=== PATIENT | male | born 1960 | race Caucasian/White ===

== ENCOUNTER → 2019-05-28 | Outpatient (CLI) | payer OTHER ==
[2019-05-30 14:06] LABS: Stool Occult Bld Immuno 1 Negative (NEGATIVE)
== END | disposition home or self-care (01) ==
LOC: LAB SHORT 12:17 → LAB 12:17 → LAB SHORT 05-29 12:17
PROVIDERS: Nurse Practitioner Family
DX: Z12.11 Encounter for screening for malignant neoplasm of colon (principal)
CPT/HCPCS: G0328

== ENCOUNTER → 2020-12-27 | Outpatient (CLI) | payer OTHER ==
[2020-12-27 15:51] LABS: Prostate Specific Antigen 0.272 ng/mL (0.000-4.000)
== END ==
LOC: LAB SHORT 12:13 → LAB 12:13 → LAB FUT 06-28 09:40
PROVIDERS: Urology
DX: C61 Malignant neoplasm of prostate (principal)
CPT/HCPCS: 36415; 84153

== ENCOUNTER 2021-06-05 13:44 | Day surgery (SDC) | payer MEDICARE, OTHER ==
[~2021-06-05] VITALS: Ht 190.5 cm; Wt 78.5 kg
[~2021-06-05 13:44] MED LIST: ALBU90OI; Aspir 8181 MG; BASAGLAR K100 UNIT/1; COMBIVENT RESPIM4 G1; Flonase 0.05% N16 GM; METF500; ZYRTEC10 M1
== END 2021-06-05 15:50 | disposition home or self-care (01) ==
LOC: ORSCSDS 13:44
PROVIDERS: Student in an Organized Health Care Education/Training Program
PROC: 0DBH8ZX Excision of Cecum, Via Natural or Artificial Opening Endoscopic, Diagnostic (ICD-10-PCS; principal; 2021-06-05 15:00)
PROC: 0DBM8ZX Excision of Descending Colon, Via Natural or Artificial Opening Endoscopic, Diagnostic (ICD-10-PCS; principal; 2021-06-05 15:00)
PROC: 0DBK8ZX Excision of Ascending Colon, Via Natural or Artificial Opening Endoscopic, Diagnostic (ICD-10-PCS; principal; 2021-06-05 15:00)
PROC: 0DBL8ZX Excision of Transverse Colon, Via Natural or Artificial Opening Endoscopic, Diagnostic (ICD-10-PCS; principal; 2021-06-05 15:00)
DX: R19.7 Diarrhea, unspecified (principal); Z80.0 Family history of malignant neoplasm of digestive organs; D12.2 Benign neoplasm of ascending colon; D12.3 Benign neoplasm of transverse colon; D12.4 Benign neoplasm of descending colon; D12.5 Benign neoplasm of sigmoid colon; K64.8 Other hemorrhoids; K64.4 Residual hemorrhoidal skin tags; J45.909 Unspecified asthma, uncomplicated; E78.5 Hyperlipidemia, unspecified; I10 Essential (primary) hypertension; E11.9 Type 2 diabetes mellitus without complications; Z79.4 Long term (current) use of insulin; Z79.899 Other long term (current) drug therapy; Z79.82 Long term (current) use of aspirin
CPT/HCPCS: 82947; 88305; J0461; J2405; J2704; J7120

== ENCOUNTER 2021-08-30 07:45 | Day surgery (SDC) | payer MEDICARE, OTHER ==
[~2021-08-30] VITALS: Ht 190.5 cm; Wt 80.6 kg
--- NOTE | 2021-08-30 08:14 | NUR ---
08/30/21 0814 TOMAS ISAAC TETRACAINE DROP INSTILLED AT 0811. PLEDGETT INSERTED AT 0813
--- NOTE | 2021-08-30 09:39 | NUR ---
08/30/21 0939 RUSTY GAMINO 400ML NS USED LEAVING 100ML NS REAMAINING IN BAG AT [place]
== END 2021-08-30 09:50 | disposition home or self-care (01) ==
LOC: ORSCSDS 07:45
PROVIDERS: Ophthalmology
PROC: 08RJ3JZ Replacement of Right Lens with Synthetic Substitute, Percutaneous Approach (ICD-10-PCS; principal; 2021-08-30 09:00)
DX: H25.13 Age-related nuclear cataract, bilateral (principal); J44.9 Chronic obstructive pulmonary disease, unspecified; E11.9 Type 2 diabetes mellitus without complications; J45.909 Unspecified asthma, uncomplicated; Z79.82 Long term (current) use of aspirin; Z79.899 Other long term (current) drug therapy
CPT/HCPCS: 82947; J2001; J2250; J3010; J3301; J7040; V2632

== ENCOUNTER 2021-09-20 07:43 | Day surgery (SDC) | payer MEDICARE, OTHER ==
[~2021-09-20] VITALS: Ht 190.5 cm; Wt 78.4 kg
[~2021-09-20 07:43] MED LIST changes: +COMBIVENT RESPIM4 G1 IH; +FLOVENT HFA12 GM; +METF500 PO
== END 2021-09-20 09:32 | disposition home or self-care (01) ==
LOC: ORSCSDS 07:43
PROVIDERS: Ophthalmology
PROC: 08RK3JZ Replacement of Left Lens with Synthetic Substitute, Percutaneous Approach (ICD-10-PCS; principal; 2021-09-20 09:00)
DX: H25.12 Age-related nuclear cataract, left eye (principal); E11.319 Type 2 diabetes mellitus with unspecified diabetic retinopathy without macular edema; J44.9 Chronic obstructive pulmonary disease, unspecified; Z79.82 Long term (current) use of aspirin; Z79.4 Long term (current) use of insulin; Z79.899 Other long term (current) drug therapy
CPT/HCPCS: 82947; J2001; J2250; J3010; J3301; J7040; V2632

== ENCOUNTER → 2023-06-12 | Outpatient (CLI) | payer MEDICARE, OTHER ==
[2023-06-12 16:30] LABS: BASOPHILS ABSOLUTE AUTO 0.04 K/mm3 (0.00-0.23); BASOPHILS PERCENT AUTO 1 % (0-2); EOSINOPHILS PERCENT AUTO 8 % (0-6); Hematocrit 39.5 % (37.0-53.0); Hemoglobin 13.4 g/dL (13.5-17.5); IMMATURE GRAN ABSOLUTE AUTO 0.03 K/mm3 (0.00-0.10); IMMATURE GRAN PERCENT AUTO 1 % (0-1); LYMPHOCYTES PERCENT AUTO 17 % (21-46); MONOCYTES ABSOLUTE AUTO 0.47 K/mm3 (0.16-1.47); MONOCYTES PERCENT AUTO 9 % (4-13); Mean Corpuscular HGB 30.4 pg (26.0-34.0); Mean Corpuscular HGB Conc 33.9 g/dL (31.5-36.5); Mean Corpuscular Volume 90 fL (80-100); Mean Platelet Volume 10.2 fL (9.1-12.4); NEUTROPHILS ABSOLUTE AUTO 3.49 K/mm3 (1.96-9.15); NEUTROPHILS PERCENT AUTO 65 % (41-73); Platelet Count 336 K/mm3 (150-400); RDW Coefficient Variation 12.6 % (11.7-14.2); RDW Standard Deviation 41.6 fL (35.1-46.3); Red Blood Cell Count 4.41 M/mm3 (4.30-5.90); White Blood Cell Count 5.33 K/mm3 (4.00-11.30)
[2023-06-12 19:49] LABS: Percent Saturation 40.8 % (20.0-50.0)
[2023-06-12 19:50] LABS: Albumin, Blood 3.8 g/dL (3.4-5.0); Albumin/Globulin Ratio 1.2 (0.8-1.8); Bilirubin, Total 0.5 mg/dL (0.1-1.0); Bun/Creatinine Ratio 12.2 (12.0-20.0); Calcium, Blood 9.4 mg/dL (8.5-10.1); Creatinine, Blood 1.39 mg/dL (0.60-1.20); Globulin, Blood 3.2 g/dL (2.2-4.0); Potassium, Blood 3.8 mmol/L (3.5-5.5)
== END | disposition home or self-care (01) ==
LOC: LAB 13:05 → LAB SHORT 13:05
PROVIDERS: Nurse Practitioner Family
DX: D64.9 Anemia, unspecified (principal)
CPT/HCPCS: 80053; 82728; 83540; 83550; 85025

== ENCOUNTER → 2024-01-22 | Outpatient (CLI) | payer MEDICARE, OTHER ==
[2024-01-22 13:56] LABS: Albumin, Blood 3.6 g/dL (3.4-5.0); Anion Gap 7 mmol/L (3-11); Blood Urea Nitrogen 16 mg/dL (8-24); CO2, Blood 31 mmol/L (21-32); Calcium, Blood 9.2 mg/dL (8.5-10.1); Chloride, Blood 103 mmol/L (98-108); Creatinine, Blood 1.07 mg/dL (0.60-1.20); Glomerular Filtration Rate 77 (60-); Glucose, Blood 233 mg/dL (70-99); Phosphorus, Blood 2.7 mg/dL (2.5-4.9); Potassium, Blood 3.9 mmol/L (3.5-5.5); Sodium, Blood 137 mmol/L (136-145)
== END | disposition home or self-care (01) ==
LOC: LAB SHORT 11:47
PROVIDERS: Internal Medicine Nephrology
DX: N18.2 Chronic kidney disease, stage 2 (mild) (principal); D63.1 Anemia in chronic kidney disease; N25.81 Secondary hyperparathyroidism of renal origin; E55.9 Vitamin D deficiency, unspecified; E78.00 Pure hypercholesterolemia, unspecified; R76.9 Abnormal immunological finding in serum, unspecified; R94.5 Abnormal results of liver function studies; R94.6 Abnormal results of thyroid function studies
CPT/HCPCS: 80069; 85018

== ENCOUNTER 2024-06-20 10:14 | Inpatient (IN) | payer MEDICARE, OTHER ==
[~2024-06-20] VITALS: Ht 188 cm; Wt 93.2 kg
[~2024-06-20 10:14] MED LIST changes: -BASAGLAR K100 UNIT/1; +BASAGLAR K100 UNIT/1 SC
[2024-06-20 11:17] LABS: BASOPHILS ABSOLUTE AUTO 0.03 K/mm3 (0.00-0.23); BASOPHILS PERCENT AUTO 0 % (0-2); EOSINOPHILS ABSOLUTE AUTO 0.17 K/mm3 (0.00-0.68); EOSINOPHILS PERCENT AUTO 1 % (0-6); Hematocrit 37.5 % (37.0-53.0); Hemoglobin 12.5 g/dL (13.5-17.5); IMMATURE GRAN ABSOLUTE AUTO 0.14 K/mm3 (0.00-0.10); IMMATURE GRAN PERCENT AUTO 1 % (0-1); LYMPHOCYTES ABSOLUTE AUTO 0.92 K/mm3 (0.84-5.20); LYMPHOCYTES PERCENT AUTO 6 % (21-46); MONOCYTES ABSOLUTE AUTO 0.84 K/mm3 (0.16-1.47); MONOCYTES PERCENT AUTO 5 % (4-13); Mean Corpuscular HGB 28.7 pg (26.0-34.0); Mean Corpuscular HGB Conc 33.3 g/dL (31.5-36.5); Mean Corpuscular Volume 86 fL (80-100); NEUTROPHILS ABSOLUTE AUTO 14.43 K/mm3 (1.96-9.15); NEUTROPHILS PERCENT AUTO 87 % (41-73); Platelet Count 419 K/mm3 (150-400); RDW Coefficient Variation 13.4 % (11.7-14.2); RDW Standard Deviation 41.5 fL (35.1-46.3); Red Blood Cell Count 4.35 M/mm3 (4.30-5.90); White Blood Cell Count 16.53 K/mm3 (4.00-11.30)
[2024-06-20 11:37] LABS: Albumin, Blood 3.5 g/dL (3.4-5.0); Albumin/Globulin Ratio 0.9 (0.8-1.8); Bilirubin, Total 0.5 mg/dL (0.1-1.0); Calcium, Blood 10.2 mg/dL (8.5-10.1); Creatinine, Blood 1.63 mg/dL (0.60-1.20); Globulin, Blood 3.9 g/dL (2.2-4.0); Potassium, Blood 4.1 mmol/L (3.5-5.5); Total Protein, Blood 7.4 g/dL (6.4-8.2)
[2024-06-20 15:43] LABS: Source, Urine Clean Catch
[2024-06-20 15:51] LABS: Appearance, Urine Clear (Clear); Bilirubin, Urine Neg (Neg); Blood, Urine 1+ (Neg); Color, Urine Yellow (P-Yellow); Glucose Qualitative, Urine Neg (Neg); Ketones, Urine 4+ (Neg); Leukocyte Esterase, Urine Neg (Neg); Nitrite, Urine Neg (Neg); Protein, Urine 2+ (Neg); Specific Gravity, Urine 1.025 (1.003-1.022); Urobilinogen, Urine NORM (Normal)
[2024-06-20 15:54] LABS: Influenza A, PCR NEGATIVE (NEGATIVE); Influenza B, PCR NEGATIVE (NEGATIVE); Resp Syncytial Virus, PCR NEGATIVE (NEGATIVE); SARS-Cov-2 (COVID-19) PCR, MMC NEGATIVE (NEGATIVE)
[2024-06-20 15:59] LABS: Amorphous Light (0-Heavy); Bacteria Rare /hpf; Hyaline Casts 25-50 /lpf (0-2); Mucus Light (0-Heavy); Red Blood Cells, Urine 0-2 /hpf (0-2); Squamous Epithelial Cells Rare /hpf (Few); White Blood Cells, Urine 0-2 /hpf (0-5)
[2024-06-20] MEDS ORDERED: NS 1,000 ML IV SCH ×2 (16:20→20:55)
[2024-06-20] MEDS ORDERED: Acetaminophen 500 MG Tab PO ONE (20:10)
[2024-06-20] MEDS ORDERED: Lactated Ringer's 1,000 ML IV ONE (20:10)
[2024-06-20] MEDS ORDERED: FLU VACC TS2024-25(6MOS UP)/PF 45 MCG/0.5 ML SYRINGE IM ONE (20:50)
[2024-06-20] MEDS ORDERED: Albuterol 2.5 MG/3 ML VIAL INH PRN (20:55)
[2024-06-20] MEDS ORDERED: Ipratropium/Albuterol SulF 2.5-0.5MG/3 ML Amp INH SCH (20:55)
[2024-06-20] MEDS ORDERED: Ondansetron HCl 2 MG / ML 2ML Vial IV PRN (20:55)
[2024-06-20] MEDS ORDERED: OxyCODONE 5 mg/Acetamin 325 mg TABLET PO PRN (21:00)
[2024-06-20] MEDS ORDERED: Acetaminophen 500 MG Tab PO SCH (21:00)
[2024-06-20] MEDS ORDERED: Sennosides 8.6 MG Tab PO SCH (21:00)
[2024-06-20 21:15] LABS: U Amphetamine Screen Not Detected; U Barbituate Screen Not Detected; U Benzodiazapine Screen Not Detected; U Buprenorphine Screen Not Detected; U Cannabinoids Screen Not Detected; U Cocaine Screen Not Detected; U Methadone Screen Not Detected; U Methamphetamine Screen Not Detected; U Opiates Screen Not Detected; U Phencyclidine Screen Not Detected
[2024-06-20 21:16] LABS: U Oxycodone Screen Not Detected
[2024-06-20] MEDS ORDERED: ERLEADA240 MG PO (21:22)
[2024-06-20] MEDS ORDERED: ATOR40TA PO (21:23)
[2024-06-20] MEDS ORDERED: [UNRECOGNIZED DRUG - OTHER] (21:26)
[2024-06-20] MEDS ORDERED: Insulin Glargine-Yfgn 100 Unit/mL 3 ML SYR SC SCH (22:00)
[2024-06-20 22:27] VITALS: BP 174/86
[2024-06-21] VITALS (8 sets, daily range): BP systolic 125–175; BP diastolic 69–85
[2024-06-21 05:46] LABS: BASOPHILS ABSOLUTE AUTO 0.02 K/mm3 (0.00-0.23); BASOPHILS PERCENT AUTO 0 % (0-2); EOSINOPHILS ABSOLUTE AUTO 0.43 K/mm3 (0.00-0.68); EOSINOPHILS PERCENT AUTO 5 % (0-6); Hematocrit 31.3 % (37.0-53.0); Hemoglobin 10.3 g/dL (13.5-17.5); IMMATURE GRAN ABSOLUTE AUTO 0.06 K/mm3 (0.00-0.10); IMMATURE GRAN PERCENT AUTO 1 % (0-1); LYMPHOCYTES ABSOLUTE AUTO 1.11 K/mm3 (0.84-5.20); LYMPHOCYTES PERCENT AUTO 14 % (21-46); MONOCYTES ABSOLUTE AUTO 0.72 K/mm3 (0.16-1.47); MONOCYTES PERCENT AUTO 9 % (4-13); Mean Corpuscular HGB Conc 32.9 g/dL (31.5-36.5); Mean Corpuscular Volume 88 fL (80-100); NEUTROPHILS ABSOLUTE AUTO 5.82 K/mm3 (1.96-9.15); NEUTROPHILS PERCENT AUTO 71 % (41-73); Platelet Count 313 K/mm3 (150-400); RDW Coefficient Variation 13.5 % (11.7-14.2); RDW Standard Deviation 43.6 fL (35.1-46.3); Red Blood Cell Count 3.55 M/mm3 (4.30-5.90); White Blood Cell Count 8.16 K/mm3 (4.00-11.30)
--- NOTE | 2024-06-21 06:05 | NUR ---
SHIFT SUMMARY PT ADMITTED FOR HENRIQUE, FREQUENT FALLS, AND T12 COMPRESSION FX. PT DENIES PAIN. C/O SOME NASAL CONGESTION AND DRY COUGH, WHICH HE HAS HAD AT HOME. CONTINUOUS IVF RUNNING. PT ABLE TO TURN HIMSELF AND REPOSITION WHILE IN BED. BILATERAL TOES AND LEFT LATERAL HEAL WITH SCABS- PICTURES TAKEN AND ARE IN CHART. PT SLEPT FOR LONG INTERVALS THROUGH THE NIGHT. BED ALARM ON, BED IN LOWEST POSITION, CALL LIGHT WITHIN REACH, SIDE RAILS UP X 2.
[2024-06-21 06:32] LABS: Bun/Creatinine Ratio 21.3 (12.0-20.0); Calcium, Blood 9.4 mg/dL (8.5-10.1); Creatinine, Blood 1.27 mg/dL (0.60-1.20)
[2024-06-21] MEDS ORDERED: Insulin Human Lispro 100 Units/ML 3ML Syringe SC SCH (07:30)
[2024-06-21] MEDS ORDERED: Docusate Sodium 100 MG Cap PO SCH (09:00)
[2024-06-21] MEDS ORDERED: Heparin Sodium 5000 Units/ML 1ML MDV SC SCH (09:00)
[2024-06-21] MEDS ORDERED: DEXTROMETHORPHAN/BENZOCAINE 1 EACH LOZENGE MT PRN (11:35)
[2024-06-21] MEDS ORDERED: Saline Nasal Spray 45 ML PRN (15:05)
[2024-06-21] MEDS ORDERED: Azithromycin 250 MG Tab PO SCH (16:00)
[2024-06-21] MEDS ORDERED: Fluticasone 0.05% Nasal Spray SCH (16:00)
[2024-06-21] MEDS ORDERED: PredniSONE 10 MG Tab PO SCH (16:00)
--- NOTE | 2024-06-21 16:37 | NUR ---
SHIFT SUMMARY: PATIENT A/OX4, CALM, PLEASANT AND COOPERATIVE c CARE. PATIENT DENIES CP/PRESSURE, SOB, N/V AND DIZZINESS . PATIENT ON TELE SR HR IN THE HIGH 80'S BPM. PATIENT POSITIVE FOR ORTHOSTATIC HYPOTENSION, DR. GLYNN IS AWARE OF THIS ISSUE. PATIENT RA, LUNGS WHEEZY T/O TO AUSCULTATION c OCCASIONAL, DRY NON PRODUCTIVE COUGH. PATIENT RECEIVED BX TX ADMINISTERED BY RT. PATIENT MEDICATED FOR PAIN c SCHEDULED AND PRN PER EMAR c GOOD EFFECT. PATIENT HAD PT EVAL TODAY, RECOMMENDING [facility]. PATIENT HAS GOOD APPETITE, CONT/INCON OF BLADDER, USES URINAL, ATTENDS PLACED AND CHANGED PRN. PATIENT HAS PIV TO LAC INFUSING NS AT 125 MLS/HR. BED ALARM ON FOR SAFETY. CALL LT IN REACH.
[2024-06-21] MEDS ORDERED: Insulin Glargine-Yfgn 100 Unit/mL 3 ML SYR SC SCH (21:00)
[2024-06-22] VITALS (12 sets, daily range): BP systolic 126–198; BP diastolic 77–114
[2024-06-22 05:14] LABS: BASOPHILS ABSOLUTE AUTO 0.02 K/mm3 (0.00-0.23); BASOPHILS PERCENT AUTO 0 % (0-2); EOSINOPHILS ABSOLUTE AUTO 0.18 K/mm3 (0.00-0.68); EOSINOPHILS PERCENT AUTO 2 % (0-6); Hematocrit 30.7 % (37.0-53.0); Hemoglobin 10.1 g/dL (13.5-17.5); IMMATURE GRAN ABSOLUTE AUTO 0.07 K/mm3 (0.00-0.10); IMMATURE GRAN PERCENT AUTO 1 % (0-1); LYMPHOCYTES PERCENT AUTO 10 % (21-46); MONOCYTES ABSOLUTE AUTO 0.69 K/mm3 (0.16-1.47); MONOCYTES PERCENT AUTO 7 % (4-13); Mean Corpuscular HGB 28.7 pg (26.0-34.0); Mean Corpuscular HGB Conc 32.9 g/dL (31.5-36.5); Mean Corpuscular Volume 87 fL (80-100); Mean Platelet Volume 10.1 fL (9.1-12.4); NEUTROPHILS ABSOLUTE AUTO 8.34 K/mm3 (1.96-9.15); NEUTROPHILS PERCENT AUTO 81 % (41-73); Platelet Count 313 K/mm3 (150-400); RDW Coefficient Variation 13.5 % (11.7-14.2); RDW Standard Deviation 42.2 fL (35.1-46.3); Red Blood Cell Count 3.52 M/mm3 (4.30-5.90)
--- NOTE | 2024-06-22 05:28 | NUR ---
SHIFT SUMMARY PT SLEPT INTERMITTENTLY THROUGH THE NIGHT. BACK PAIN MANAGED WITH SCHEDULED TYLENOL. PT CONT/INCONT OF URINE, DEPENDS CHANGED NEEDED. PT ABLE TO STAND TO URINATE WITHOUT C/O DIZZINESS. ORTHOSTATIC HYPOTENSION CONTINUES PER VITALS THIS AM. IVF CONTINUES TO INFUSE. BED IN LOWEST POSITION, CALL LIGHT WITHIN REACH, SIDE RAILS UP X2.
[2024-06-22 05:44] LABS: Albumin/Globulin Ratio 0.9 (0.8-1.8); Bilirubin, Total 0.3 mg/dL (0.1-1.0); Bun/Creatinine Ratio 16.2 (12.0-20.0); Calcium, Blood 9.4 mg/dL (8.5-10.1); Creatinine, Blood 1.17 mg/dL (0.60-1.20); Globulin, Blood 3.5 g/dL (2.2-4.0); Potassium, Blood 3.8 mmol/L (3.5-5.5); Total Protein, Blood 6.5 g/dL (6.4-8.2)
[2024-06-22 08:12] LABS: Percent Saturation 17.9 % (20.0-50.0)
[2024-06-22] MEDS ORDERED: Atorvastatin 40 MG Tab PO SCH (09:00)
[2024-06-22] MEDS ORDERED: Ipratropium/Albuterol SulF 2.5-0.5MG/3 ML Amp INH PRN (13:25)
--- NOTE | 2024-06-22 17:56 | NUR ---
SHIFT SUMMARY PT CONT LEVEL OF CARE. PT NOTED TO BE A&OX4 AND ASSIST X1 WITH FWW. PT CONT TO HAVE ORTHOSTATIC HYPOTENSION. PT HAD ECHO DONE THIS SHIFT WITH NO ACUTE FINDINGS NOTED. PT DENIES DIZZINESS WHEN STANDING. PT VOICE C/O BACK PAIN WHICH IS BEING CONTROLLED WITH SCHEDULED APAP. RECEIVED NEW ORDER TO ENCOURAGE INCREASE SALT DIET.
[2024-06-22] MEDS ORDERED: Insulin Glargine-Yfgn 100 Unit/mL 3 ML SYR SC SCH (21:00)
[2024-06-23] VITALS (10 sets, daily range): BP systolic 125–178; BP diastolic 73–99
--- NOTE | 2024-06-23 04:40 | NUR ---
SHIFT SUMMARY PT ALERT ORIENTED ABLE TO VERBALIZE NEEDS REQUIRES SBA WITH WALKER. HE HAS BEEN CONTINENT OF B&B THIS SHIFT. HE USED HIS URINAL. C/O BACK PAIN BUT REFUSED TO TAKE ANY PAIN MEDS EXCEPT FOR HIS ROUTINE TYLENOL. HE REMAINS WITH ORTHOSTATIC HYPOTENSION. NO C/O DIZZINESS THIS SHIFT. BP REMAINS SLIGHTLY ELEVATED BUT ALL OTHER VSS HE REMAINS ON RA SATTING AT 98%. HES RESTING IN BED AT THIS TIME WITH HIS CALL LIGHT IN REACH
[2024-06-23 05:13] LABS: BASOPHILS ABSOLUTE AUTO 0.04 K/mm3 (0.00-0.23); BASOPHILS PERCENT AUTO 0 % (0-2); EOSINOPHILS ABSOLUTE AUTO 0.59 K/mm3 (0.00-0.68); EOSINOPHILS PERCENT AUTO 6 % (0-6); Hematocrit 33.2 % (37.0-53.0); IMMATURE GRAN ABSOLUTE AUTO 0.09 K/mm3 (0.00-0.10); IMMATURE GRAN PERCENT AUTO 1 % (0-1); LYMPHOCYTES ABSOLUTE AUTO 1.29 K/mm3 (0.84-5.20); LYMPHOCYTES PERCENT AUTO 13 % (21-46); MONOCYTES ABSOLUTE AUTO 0.84 K/mm3 (0.16-1.47); MONOCYTES PERCENT AUTO 8 % (4-13); Mean Corpuscular HGB 28.6 pg (26.0-34.0); Mean Corpuscular HGB Conc 33.1 g/dL (31.5-36.5); Mean Corpuscular Volume 87 fL (80-100); Mean Platelet Volume 9.9 fL (9.1-12.4); NEUTROPHILS ABSOLUTE AUTO 7.21 K/mm3 (1.96-9.15); NEUTROPHILS PERCENT AUTO 72 % (41-73); Platelet Count 325 K/mm3 (150-400); RDW Coefficient Variation 13.5 % (11.7-14.2); Red Blood Cell Count 3.84 M/mm3 (4.30-5.90); White Blood Cell Count 10.06 K/mm3 (4.00-11.30)
[2024-06-23 05:54] LABS: Bun/Creatinine Ratio 15.1 (12.0-20.0); Calcium, Blood 9.9 mg/dL (8.5-10.1); Creatinine, Blood 1.19 mg/dL (0.60-1.20); Potassium, Blood 3.9 mmol/L (3.5-5.5)
[2024-06-23] MEDS ORDERED: Fludrocortisone Acetate 0.1 MG Tab PO SCH (06:00)
--- NOTE | 2024-06-23 17:39 | NUR ---
SUMMARY NO ACUTE CHANGES THIS SHIFT. PT WORKED WITH PT/OT TODAY. PLAN FOR DISCHARGE TOMORROW. ORTHOSTATIC BP RECORDED. PT DENIES DIZZINESS WITH STANDING AT THIS TIME. CBG TREATED PER EMAR. PT REPORTS PAIN IN BILAT SHOULDERS AND CHRONIC BACK PAIN, TREATED PER EMAR.
[2024-06-24 04:50] VITALS: BP 125/82
--- NOTE | 2024-06-24 05:09 | NUR ---
SHIFT SUMMARY PT ALERT ORIENTED X 4 ABLE TO VERBALIZE NEEDS. NO C/O DIZZINESS THIS SHIFT HE WAS ABLE TO GET UP AND AMBULATE TO THE BATHROOM WITH NO PROBLEMS C/O BACK AND SHOULDER PAIN MEDICATED WITH PERCOCET WITH GOOD PAIN RELIEF. VSS SATTING AT 94% ON RA. FS DONE AC. HES BEEN TAKING PO FLUIDS IN WELL. HES ABLE TO REPOSITION HIMSELF IN THE BED. HES DUE TO DC TO HOME TODAY AND F/U OUTPATIENT. HES RESTING IN BED AT THIS TIME WITH CALL LIGHT IN REACH
[2024-06-24 06:00] LABS: BASOPHILS ABSOLUTE AUTO 0.04 K/mm3 (0.00-0.23); BASOPHILS PERCENT AUTO 0 % (0-2); EOSINOPHILS ABSOLUTE AUTO 0.61 K/mm3 (0.00-0.68); EOSINOPHILS PERCENT AUTO 7 % (0-6); Hemoglobin 10.3 g/dL (13.5-17.5); IMMATURE GRAN ABSOLUTE AUTO 0.11 K/mm3 (0.00-0.10); IMMATURE GRAN PERCENT AUTO 1 % (0-1); LYMPHOCYTES ABSOLUTE AUTO 1.34 K/mm3 (0.84-5.20); LYMPHOCYTES PERCENT AUTO 15 % (21-46); MONOCYTES ABSOLUTE AUTO 0.96 K/mm3 (0.16-1.47); MONOCYTES PERCENT AUTO 11 % (4-13); Mean Corpuscular HGB Conc 33.2 g/dL (31.5-36.5); Mean Corpuscular Volume 87 fL (80-100); Mean Platelet Volume 10.2 fL (9.1-12.4); NEUTROPHILS ABSOLUTE AUTO 6.09 K/mm3 (1.96-9.15); NEUTROPHILS PERCENT AUTO 67 % (41-73); Platelet Count 330 K/mm3 (150-400); RDW Coefficient Variation 13.3 % (11.7-14.2); RDW Standard Deviation 42.4 fL (35.1-46.3); Red Blood Cell Count 3.55 M/mm3 (4.30-5.90); White Blood Cell Count 9.15 K/mm3 (4.00-11.30)
[2024-06-24 06:34] LABS: Albumin/Globulin Ratio 0.9 (0.8-1.8); Bilirubin, Total 0.2 mg/dL (0.1-1.0); Calcium, Blood 9.4 mg/dL (8.5-10.1); Creatinine, Blood 1.2 mg/dL (0.60-1.20); Globulin, Blood 3.5 g/dL (2.2-4.0); Potassium, Blood 3.6 mmol/L (3.5-5.5); Total Protein, Blood 6.5 g/dL (6.4-8.2)
[2024-06-24 07:49] VITALS: BP 169/88
--- NOTE | 2024-06-24 07:58 | NUR ---
cbg 49, dr. erwin notified, pt is non symptomatic, gave pt apple juice and peanut butter crackers. will recheck cbg and orthostatic bp after breakfast.
[2024-06-24] MEDS ORDERED: Insulin Human Lispro 100 Units/ML 3ML Syringe SC SCH ×2 (08:30→12:30)
[2024-06-24 09:00] VITALS: BP 125/67
[2024-06-24 09:07] VITALS: BP 144/70
[2024-06-24 09:08] VITALS: BP 135/80
[2024-06-24 09:10] VITALS: BP 98/71
[2024-06-24] MEDS ORDERED: FLUDROCORTISON0.1 M1 PO (13:46)
[2024-06-24] MEDS ORDERED: HUMALOG KW100 UNIT/1 (13:51)
[2024-06-24] MEDS ORDERED: Prednisone10 MG PO (13:51)
[2024-06-24] MEDS ORDERED: NASAL SPRAY88 ML (13:53)
--- NOTE | 2024-06-24 14:50 | NUR ---
PT DISCHARGED HOME. DISCUSSED DISCHARGE INSTRUCTIONS WITH PT. SET PT PHONE UP FOR GLUCOSE MONITOR AGUSTO. NO QUESTIONS OR CONCERNS AT TIME OF DISCHARGE. EMPHASIZED IMPORTANCE OF USING CAUTION WHEN SIT TO STAND. PT VERBALIZED UNDERSTANDING
[2024-06-24] MEDS ORDERED: Insulin Glargine-Yfgn 100 Unit/mL 3 ML SYR SC SCH (21:00)
== END 2024-06-24 14:50 | disposition home or self-care (01) | DRG 74 ==
LOC: ER 10:14 → MEDS 10:15 → ENPENDDIS 06-24 14:37 → MEDS 06-24 14:50
PROVIDERS: Internal Medicine; Nurse Practitioner Acute Care; Student in an Organized Health Care Education/Training Program; ADMIT Student in an Organized Health Care Education/Training Program
DX: E11.42 Type 2 diabetes mellitus with diabetic polyneuropathy (principal); N17.9 Acute kidney failure, unspecified; M80.88XA Other osteoporosis with current pathological fracture, vertebra(e), initial encounter for fracture; I95.1 Orthostatic hypotension; E83.52 Hypercalcemia; E86.0 Dehydration; J45.909 Unspecified asthma, uncomplicated; Z91.81 History of falling; Z79.82 Long term (current) use of aspirin; Z79.51 Long term (current) use of inhaled steroids; Z79.84 Long term (current) use of oral hypoglycemic drugs; Z79.4 Long term (current) use of insulin; Z85.46 Personal history of malignant neoplasm of prostate; Z90.79 Acquired absence of other genital organ(s)
CPT/HCPCS: 0241U; 36415; 51798; 71045; 72040; 72131; 76770; 80048; 80053; 81001; 82533; 82550; 82728; 82947; 83036; 83540; 83550; 84443; 84484; 85025; 93005; 93010; 93306; 94640; 94664; 94760; 96360; 96361; 96372; 97110; 97161; 97165; 97530; 97530-CQ; 97535; 99285-25; A9270; G0378; J1644; J1815; J7030; J7120; J7512

== ENCOUNTER 2024-09-23 08:25 | Inpatient (IN) | payer MEDICARE, OTHER ==
[2024-09-23] VITALS (29 sets, daily range): BP systolic 101–158; BP diastolic 54–144
[~2024-09-23] VITALS: Ht 188 cm; Wt 79.2 kg
[~2024-09-23 08:25] MED LIST changes: +ATOR40TA PO; +ERLEADA240 MG PO; +FLUDROCORTISON0.1 M1 PO; +HUMALOG KW100 UNIT/1; +NASAL SPRAY88 ML; +Prednisone10 MG PO; +[UNRECOGNIZED DRUG - OTHER]
[2024-09-23] MEDS ORDERED: LORazepam 2 MG/ML 1ML Injection IV ONE (08:35)
[2024-09-23 08:54] LABS: Base Excess Venous -3.1 mmol/L; Bicarbonate Venous 21.1 mmol/L (24.0-30.0); PCO2 Venous 47.7 mmHg (38-42)
[2024-09-23 08:57] LABS: BASOPHILS ABSOLUTE AUTO 0.01 K/mm3 (0.00-0.23); BASOPHILS PERCENT AUTO 0 % (0-2); EOSINOPHILS PERCENT AUTO 0 % (0-6); Hematocrit 35.9 % (37.0-53.0); Hemoglobin 12.4 g/dL (13.5-17.5); IMMATURE GRAN ABSOLUTE AUTO 0.05 K/mm3 (0.00-0.10); IMMATURE GRAN PERCENT AUTO 1 % (0-1); LYMPHOCYTES ABSOLUTE AUTO 0.38 K/mm3 (0.84-5.20); LYMPHOCYTES PERCENT AUTO 5 % (21-46); MONOCYTES ABSOLUTE AUTO 0.33 K/mm3 (0.16-1.47); MONOCYTES PERCENT AUTO 4 % (4-13); Mean Corpuscular HGB 28.5 pg (26.0-34.0); Mean Corpuscular HGB Conc 34.5 g/dL (31.5-36.5); Mean Corpuscular Volume 83 fL (80-100); Mean Platelet Volume 11.4 fL (9.1-12.4); NEUTROPHILS ABSOLUTE AUTO 7.53 K/mm3 (1.96-9.15); NEUTROPHILS PERCENT AUTO 91 % (41-73); Platelet Count 301 K/mm3 (150-400); RDW Standard Deviation 38.7 fL (35.1-46.3); Red Blood Cell Count 4.35 M/mm3 (4.30-5.90)
[2024-09-23 09:07] LABS: Source, Urine Clean Catch
[2024-09-23 09:09] LABS: Appearance, Urine Clear (Clear); Bilirubin, Urine Neg (Neg); Blood, Urine 1+ (Neg); Glucose Qualitative, Urine 4+ (Neg); Ketones, Urine 2+ (Neg); Leukocyte Esterase, Urine Neg (Neg); Nitrite, Urine Neg (Neg); Protein, Urine Neg (Neg); Specific Gravity, Urine 1.005 (1.003-1.022); Urobilinogen, Urine NORM (Normal)
[2024-09-23 09:13] LABS: Color, Urine Pale Yellow (P-Yellow)
[2024-09-23 09:16] LABS: Bacteria Not Seen /hpf; Red Blood Cells, Urine 0-2 /hpf (0-2); Squamous Epithelial Cells Not Seen /hpf (Few); White Blood Cells, Urine 0-2 /hpf (0-5)
[2024-09-23 09:22] LABS: Free Thyroxine 1.27 ng/dL (0.70-1.60); Thyroid Stimulating Hormone 0.933 uIU/mL (0.360-4.800)
[2024-09-23] MEDS ORDERED: MIDO5 (09:36)
[2024-09-23] MEDS ORDERED: BASAGLAR K100 UNIT/3 SC (09:36)
[2024-09-23 09:45] LABS: Albumin/Globulin Ratio 1.2 (0.8-1.8); Bilirubin, Total 0.7 mg/dL (0.1-1.0); Bun/Creatinine Ratio 26.4 (12.0-20.0); Calcium, Blood 10.4 mg/dL (8.5-10.1); Creatinine, Blood 1.21 mg/dL (0.60-1.20); Globulin, Blood 3.4 g/dL (2.2-4.0); Potassium, Blood 5.3 mmol/L (3.5-5.5); Total Protein, Blood 7.4 g/dL (6.4-8.2)
[2024-09-23] MEDS ORDERED: Ondansetron HCl 2 MG / ML 2ML Vial IV PRN ×2 (09:50→17:20)
[2024-09-23] MEDS ORDERED: Insulin Human Regular 100 UNIT in NS 100 ML IV SCH ×2 (09:50→10:30)
[2024-09-23] MEDS ORDERED: Lactated Ringer's 1,000 ML IV ONE ×2 (09:50→10:27)
[2024-09-23 09:55] LABS: U Amphetamine Screen Not Detected; U Barbituate Screen Not Detected; U Benzodiazapine Screen Not Detected; U Buprenorphine Screen Not Detected; U Cannabinoids Screen Not Detected; U Cocaine Screen Not Detected; U Methadone Screen Not Detected; U Methamphetamine Screen Not Detected; U Opiates Screen Not Detected; U Oxycodone Screen Not Detected; U Phencyclidine Screen Not Detected
[2024-09-23] MEDS ORDERED: Potassium Chl 20MEQ/Water100ML 100 ML IV ONE (09:55)
[2024-09-23] MEDS ORDERED: Dextrose 50% 50 ML Syringe IV PRN (10:20)
[2024-09-23] MEDS ORDERED: Lactated Ringer's 1,000 ML IV SCH (10:20)
[2024-09-23] MEDS ORDERED: D5W-1/2NS 1,000 ML IV SCH (10:20)
--- NOTE | 2024-09-23 13:00 | NUR ---
NOTIFICATION OF INTEGUMENTARY ASSESSMENT/WOUNDS: NOTIFIED DR. DOMINGUEZ OF PATIENT'S MULTIPLE WOUNDS, INCLUDING PRESSURE ULCERS ON BILATERAL INDEX TOES. NO NEW ORDERS AT THIS TIME. WOUNDS DRESSED.
[2024-09-23 13:20] LABS: Glucose, Blood 755 mg/dL (70-99)
[2024-09-23 14:14] LABS: Glucose, Blood 559 mg/dL (70-99)
--- NOTE | 2024-09-23 14:27 | NUR ---
INSULIN MANAGEMENT: PATIENT INSULIN DECREASED FROM 755 TO 559. DISCUSSED WITH PROFESSOR OF COMMUNICATION ARTS. DISCUSSED WITH ICU CLINICAL COORDINATOR. CURRENT PROTOCOL STATES THAT INSULIN GTT SHOULD STAY THE SAME. DISCUSSED CONCERN OF A DECREASE IN GLUCOSE OF 196. DECREASED INSULIN GTT BY 0.75 TO ENSURE PATIENT DOES NOT DECREASE GLUCOSE TO RAPIDLY. MESSAGE LEFT WITH DR. DOMINGUEZ. INSULIN GTT NOW AT 5.9 UNITS/HOUR.
[2024-09-23 14:55] LABS: Glucose, Blood 523 mg/dL (70-99)
[2024-09-23 16:27] LABS: Bun/Creatinine Ratio 23.4 (12.0-20.0); Calcium, Blood 10.7 mg/dL (8.5-10.1); Creatinine, Blood 1.24 mg/dL (0.60-1.20); Potassium, Blood 4.2 mmol/L (3.5-5.5)
[2024-09-23] MEDS ORDERED: Metoclopramide HCl 5MG / ML 2ML Vial IV PRN (17:15)
--- NOTE | 2024-09-23 17:15 | NUR ---
NAUSEA AND AFTERNOON METABOLIC PANEL RESULTS: PATIENT'S COMMUNICATION IS IMPROVING. PATIENT REPORTS NAUSEA. COOL CLOTH AND FAN PROVIDED. AFTERNOON BMP RESULTS SHOWED LARGE INCREASE IN SODIUM COMPARED TO THIS AM. DISCUSSED WITH DR. DOMINGUEZ. NEW ORDERS RECEIVED AND ENTERED.
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
--- NOTE | 2024-09-23 20:00 | NUR ---
ASSUMPTION OF CARE CARE OF PT ASSUMED FOLLOWING RECEIPT OF REPORT FROM DAY RN. PT LYING IN BED WITH FRIEND, DEE, IN ROOM. PT IN NO APPARENT DISTRESS. NO CHEST PAIN/PRESSURE. SINUS RHYTHM IN THE 80'S WITH STABLE BP. RESPIRATIONS REGULAR AND W/O EXTRA EFFORT; SATURATIONS MID TO HIGH 90'S ON RA. PT SHOWS SIGNS OF SLEEP APNEA WITH DESATURATION WHILE SLEEPING. OXYGEN NC STARTED AT 2L PRODUCING SATURATION OF 98-99%. PT IS CONFUSED BUT OVERALL PLEASANT, DROWSY BUT ANSWERS QUESTIONS. ORIENTED TO SELF AND PERSON (FRIEND). INSULING IS INFUSING AT 7.7 UNITS/HR WITH LR INFUSING AT 200ML/HR. WILL CONTINUE TO CHECK GLUCOSE EVERY 1 HR. NO ORDER FOR NEXT BMP UNTIL MORNING, SO WILL PLACE ORDER FOR [address] TO SUCTION. PT HAS CALL LIGHT AND FRIEND IN THE ROOM, WHO WILL STAY THE NIGHT, OFFERING A FAMILIAR VOICE WHEN PT WAKES UP CONFUSED.
[2024-09-23 23:56] LABS: Bun/Creatinine Ratio 20.7 (12.0-20.0); Calcium, Blood 10.3 mg/dL (8.5-10.1); Creatinine, Blood 1.21 mg/dL (0.60-1.20); Potassium, Blood 3.7 mmol/L (3.5-5.5)
[2024-09-24] VITALS (16 sets, daily range): BP systolic 99–183; BP diastolic 60–119
[2024-09-24] MEDS ORDERED: HydrALAZINE HCl 20 MG / ML 1ML Vial IV PRN (01:25)
[2024-09-24] MEDS ORDERED: Potassium Chloride 40 MEQ in NS 250 ML IV ONE (02:00)
--- NOTE | 2024-09-24 04:00 | NUR ---
UPDATE: FRIEND SHOWED THIS RN VIDEO OF PT SHORTLY AFTER BEING FOUND DOWN. VIDEO SHOWED PT SITTING IN CHAIR WITH HIS RIGHT ARM JERKING RIGHT HAND TOWARD CHEST. PT COULD NOT CONTROL MOVEMENT. ALSO, LEFT HAND CAN BE SEEN IN AN EXTENSION/CUPPING MOVEMENT. I ASKED THE FRIEND TO SHOW THE VIDEO TO A PROVIDER IF HE IS STILL PRESENT WHEN ROUNDING OCCURS.
[2024-09-24 05:56] LABS: Bun/Creatinine Ratio 19.8 (12.0-20.0); Calcium, Blood 9.7 mg/dL (8.5-10.1); Creatinine, Blood 1.16 mg/dL (0.60-1.20); Potassium, Blood 3.7 mmol/L (3.5-5.5)
[2024-09-24] MEDS ORDERED: Insulin NPH 10 Unit/0.1ML (Single Dose) SC ONE (08:00)
--- NOTE | 2024-09-24 08:00 | NUR ---
SHIFT SUMMARY PT LYING IN BED WITH FRIEND, DEE, IN ROOM- DEE STAYED ALL NIGHT AND PAPERWORK IS IN PROGRESS FOR HIM TO BECOME POA FOR PT. PT IN NO APPARENT DISTRESS. NO CHEST PAIN/PRESSURE OR SOB THROUGHOUT SHIFT. SINUS RHYTHM IN THE 80'S WITH STABLE BP. RESPIRATIONS REGULAR AND W/O EXTRA EFFORT; SATURATIONS HIGH 90'S ON 2L NC WHICH WAS STARTED WHEN PT SHOWED SIGNS OF SLEEP APNEA WITH DESATURATION WHILE SLEEPING. PT IS CONFUSED BUT OVERALL PLEASANT. HIS MENTATION HAS IMPROVED CONSIDERABLY FROM START OF SHIFT, ORIENTATION STILL CONSISTENTLY LIMITED TO SELF AND PERSON BUT CAN TALK ABOUT SMALL DETAILS OF HIS LIFE AND FINANCES. INSULING IS INFUSING AT 3.7 UNITS/HR WITH D51/2 NS INFUSING AT 200ML/HR. PUREWICK IN PLACE TO SUCTION- ONLY 100 OUT DURING FIRST 4 HOURS OF SHIFT. WHEN ASKED ABOUT SENSATION TO URINATE, PT SAID NO. LATER, DURING BEDSIDE REPORT, WHEN PT WAS MORE VERBAL AND LESS CONFUSED, HE STATED THAT HE OFTEN DOES NOT FEEL THE NEED TO URINATE. POTASSIUM WAS BELOW 4 AT 330 LAB DRAW BUT 40KCL WAS STILL INFUSING AT THAT TIME SO CALL TO PROVIDER RESULTED IN NO ORDER FOR MORE KCL, BUT RATHER A REPEAT BMP AT 0900. REPORT GIVEN TO ONCOMING NURSE AND PT LEFT IN ROOM WITH CALL LIGHT AND FRIEND STILL PRESENT.
[2024-09-24] MEDS ORDERED: Enoxaparin 40 MG/0.4 ML SYR SC SCH (09:00)
[2024-09-24 09:38] LABS: Bun/Creatinine Ratio 16.5 (12.0-20.0); Calcium, Blood 9.6 mg/dL (8.5-10.1); Creatinine, Blood 1.09 mg/dL (0.60-1.20); Potassium, Blood 3.9 mmol/L (3.5-5.5)
[2024-09-24] MEDS ORDERED: Insulin NPH 100 Unit / ML 10ML Vial SC ONE (09:45)
--- NOTE | 2024-09-24 13:09 | NUR ---
Met with pt this morning, along with his best friend Theo and sister Deidra. Provided them with information from including long-term Medicaid information. Sister is assisting pt in filling out financial POA, and setting up phone appointment for Medicaid. The patient is alert, oriented x's 3. He is severely vision impaired however, and his memory is poor, likely related to worsening type 2 diabetes. He is open to receiving assistance from his friend and sister. In the past, has been, in his words, "Terribly stubborn." Hopeful pt will accept some assistance from friend and sister, plan to see pt again tomorrow.
[2024-09-24] MEDS ORDERED: Insulin Human Lispro 100 Units/ML 3ML Syringe SC SCH ×3 (16:30→21:00)
--- NOTE | 2024-09-24 18:47 | NUR ---
Summary. Pt transferred to medical floor at approximately 1750. All personal belongings sent with patient to new room. Pt wheeled up to new room via bed by patient respiratory care specialist. VS stable at time of transfer. Family updated on new room number.
--- NOTE | 2024-09-24 20:49 | NUR ---
ICU TRANSFER. CB 463. HOSPITALIST OLINDA AGUAYO ORDERED HUMALOG HS TO GIVE PER ORDER. GLARGINE 20 UNITS SCHEDULE. WAITING ON GLARGINE PEN FROM EITHER ICU OR ONE ORDERED FROM PHARMACY. TERESA.
[2024-09-24] MEDS ORDERED: Insulin Glargine-Yfgn 100 Unit/mL 3 ML SYR SC SCH (21:00)
[2024-09-24 22:33] LABS: Albumin/Globulin Ratio 1.1 (0.8-1.8); Bilirubin, Total 0.5 mg/dL (0.1-1.0); Bun/Creatinine Ratio 18.8 (12.0-20.0); Calcium, Blood 8.6 mg/dL (8.5-10.1); Creatinine, Blood 1.28 mg/dL (0.60-1.20); Globulin, Blood 2.7 g/dL (2.2-4.0); Potassium, Blood 4.3 mmol/L (3.5-5.5); Total Protein, Blood 5.7 g/dL (6.4-8.2)
[2024-09-25] VITALS (7 sets, daily range): BP systolic 129–174; BP diastolic 75–95
[2024-09-25] MEDS ORDERED: NS 1,000 ML IV SCH (00:10)
[2024-09-25] MEDS ORDERED: NS 500 ML IV SCH (00:15)
[2024-09-25] MEDS ORDERED: NS 500 ML IV ONE (00:20)
--- NOTE | 2024-09-25 00:37 | NUR ---
HOSPITALIST OLINDA FOLLOW UP CALL FOR CBG 436 DOWN FROM 463. ALSO UPDATED HIM ON LABS ORDERED. NA 126 DOWN FROM 136, 9 AM LABS. NS 500 mL BOLUS ORDERED X ONE FOLLOWED BY NS @ 125 mL/HR. WCTM.
--- NOTE | 2024-09-25 04:06 | NUR ---
SHIFT SUMMARY PATIENT TRANSFER FROM ICU PRIOR TO SHIFT CHANGES AND CBG 463. SEE NOTES. ALERT ORIENTED AND BEDREST. PUREWICK IN PLACE. PIVS INTACT. NS INFUSING @ 125 mL/HR. DENIES CHEST PAIN, SOB, AND N/V. VSS/AFEBRILE. TELE MONITOR NSR 78. SLEPT MOST OF THE SHIFT. CALL LIGHT IN REACH. BED IN LOWEST POSITION. WILL CONTINUE TO MONITOR UNTIL DAY SHIFT NURSE ASSUMES CARE.
--- NOTE | 2024-09-25 06:19 | NUR ---
SBP 174/94 AND IV APRESOLINE 10 MG GIVEN FOR SBP >160 SBP 139/78 ON RECHECK.
[2024-09-25] MEDS ORDERED: Losartan Potassium 25 MG Tab PO SCH (09:00)
[2024-09-25] MEDS ORDERED: Insulin NPH 100 Unit / ML 10ML Vial SC ONE (09:30)
--- NOTE | 2024-09-25 12:19 | NUR ---
DR. DOMINGUEZ NOTIFIED BY TELEPHONE THAT THE PATIENT'S CBG WAS 408 BEFORE LUNCH. HE ORDERED THE PATIENT BE CHANGED TO A HIGH CORRECTION SCALE. 15 U HUMALOG WAS ADMINISTERED.
[2024-09-25] MEDS ORDERED: Insulin Human Lispro 100 Units/ML 3ML Syringe SC SCH (16:30)
--- NOTE | 2024-09-25 18:03 | NUR ---
SHIFT SUMMARY MS GARCIA IS ABLE TO ANSWER ORIENTATION QUESTIONS CORRECTLY. HE ASKS SOME REPETATIVE QUESTIONS AND REPORTS FEELING FORGETFUL. C/O FEELING DIZZY, DOUBLE VISION, R ARM TREMORS. LEFT LEG WEAKER THAN RIGHT, LEFT HIP PAIN (XRAY DONE) UP TO CHAIR FOR SUPPER - 2 PERSON ASSISTANCE, UNSTEADY TRANSFER. BLOOD SUGARS HAVE BEEN ELEVATED, MD ADJUSTED MEDICATIONS. IVF CONTINUE AT 125/HR. INCONTINENT OF URINE AT BASELINE X ~1YR, PUREWICK IN PLACE WITH GOOD UOP. BED AND CHAIR ALARMS USED. CALL LIGHT IN REACH.
[2024-09-25] MEDS ORDERED: Insulin Glargine-Yfgn 100 Unit/mL 3 ML SYR SC SCH (21:00)
[2024-09-26] VITALS (8 sets, daily range): BP systolic 137–179; BP diastolic 69–102
--- NOTE | 2024-09-26 03:50 | NUR ---
ROTARY DRILLER PROSPECTING SUMMARY BP ELEVATED, OTHERWISE VSS. ASYMPTOMATIC. HS ACCU CHECK 298, INSULIN COVERAGE GVEN - SEE MAR FOR DEAILS. UP WITH ASSIST. MALE PUREWICK IN USE, VERONICA URINE. COOPERATIVE WITH CARE. HAS BEEN RESTING QUIETLY WITH FEW INTERRUPTIONS. CALL LIGHT IN REACH, RAILS UP X 2 AND BED IN LOW POSITION FOR SAFETY. WILL CONTINUE TO MONITOR.
[2024-09-26 09:14] LABS: Bun/Creatinine Ratio 14.7 (12.0-20.0); Calcium, Blood 8.5 mg/dL (8.5-10.1); Creatinine, Blood 1.02 mg/dL (0.60-1.20); Potassium, Blood 3.5 mmol/L (3.5-5.5)
[2024-09-26] MEDS ORDERED: Insulin NPH 100 Unit / ML 10ML Vial SC ONE (12:40)
[2024-09-26] MEDS ORDERED: Docusate Sodium 100 MG Cap PO SCH (12:40)
[2024-09-26] MEDS ORDERED: Magnesium Hydroxide Conc 10 ML UDC PO PRN (12:40)
[2024-09-26] MEDS ORDERED: Fluticasone 0.05% Nasal Spray SCH (12:45)
--- NOTE | 2024-09-26 16:11 | NUR ---
SHIFT SUMMARY MR MOORE IS ORIENTATED X4, SOME REPETATIVE CONVERSATION AND SOMETIMES FORGETFUL. BLOOD GLUCOSE HAS BEEN HIGH TODAY, [address] DOMINGUEZ ORDERED AN EXTRA 15U NPH. BLOOD PRESSURES HIGH, GIVEN PRN HYDRALAZINE. NO BM FOR A FEW DAYS, GIVEN COLACE AND MOM. OCCASIONAL LEFT HIP PAIN, NO PAIN AT REST, SOME WITH MOVEMENT, IMPROVED FROM YESTERDAY. HE CONTINUES ON IVF NS AT 125/HR AND HAS PUREWICK IN PLACE FOR URINARY INCONTINENCE. UP TO CHAIR FOR BREAKFAST THIS MORNNG AND HE AGREES TO THE PLAN TO BE UP FOR SUPPER. ENCOURAGED TO INCREASE MOVEMENT. DISCUSSED DIET AND DIABETES WITH MR MOORE AND HE CONTINUES TO NEED REINFORCEMENT OF EDUCATION. BED LOW, CALL LIGHT IN REACH, BED ALARM ON.
[2024-09-27 00:49] VITALS: BP 152/71
--- NOTE | 2024-09-27 02:23 | NUR ---
I HAVE REVIEWED STUDENT DOCUMENTATION AND AGREE.
--- NOTE | 2024-09-27 03:07 | NUR ---
Inspector Raw Quartz Shift Summary Vital signs stable. Alert and oriented x4. Accu check 261 at HS. Patient has had no BM in 4 days dayshift reported giving MOM and collace, Collace was given with night medication. Bowel sounds hypoactive in RUQ and LUQ and active in RLQ and LLQ. Patient asympotmatic at this time, will continue to monitor. NS infusing at 125mL per hour see eMar for details. Patient resting quietly with few interruptions, bed rails up x2 and call light within reach. Will continue to monitor.
[2024-09-27 03:44] VITALS: BP 162/69
[2024-09-27] MEDS ORDERED: APALUTAMIDE 60 MG PO SCH (09:00)
[2024-09-27] MEDS ORDERED: Insulin Glargine-Yfgn 100 Unit/mL 3 ML SYR SC SCH (10:00)
[2024-09-27 12:16] VITALS: BP 160/96
[2024-09-27 15:28] VITALS: BP 143/79
--- NOTE | 2024-09-27 17:04 | NUR ---
SHIFT SUMMARY: PATIENT IS ALERT AND ORIENTEDX4, HAS REMAINED IN BED THIS SHIFT; PATIENT ENCOURAGED TO GET UP AND TO TAKE A SHOWER, BUT REFUSED. PATIENT BEING REPOSITIONED Q2 HOURS. DRESSING CHANGES ON R ELBOW, HEELS, AND BILATERAL 2ND TOES; DRESSING ON COCCYX STILL C/D/I; BOTTOM NOT RED. PATIENT'S BLOOD SUGARS IMPROVED; INCREASED LONG ACTING INSULIN TO TWICE DAILY; FIRST 15 UNITS GIVEN THIS MORNING. PATIENT IN BED, ALERT, CALL LIGHT WITHIN REACH, NO SIGNS OR SYMPTOMS OF DISTRESS, PLAN OF CARE ONGOING.
[2024-09-27 21:14] VITALS: BP 126/64
[2024-09-28] VITALS (7 sets, daily range): BP systolic 115–168; BP diastolic 56–126
--- NOTE | 2024-09-28 04:04 | NUR ---
STACKER STRAIGHTENER SUMMARY BP ELEVATED, OTHERWISE VSS. ASYMPTOMATIC. COOPERATIVE WITHCARE. ACCU CHECK AT HS WAS 293, INSULIN COVERAGE GIVEN - SEE MAR FOR DETAILS. PUREWICK IN USE, BACKED UP AND BED LINEN AND GOWN CHANGED. WORKING AGAIN. HAS BEEN RESTING QUIETLY WITH FEW INTERRUPTIONS. IVF OF NS INFUSING AT 125 ML/HR. ABLE TO REPOSITION SELF IN BED FOR COMFORT, CALL LIGHT IN REACH, RAILS UP X 2 AND BED IN LOW POSITION FOR SAFETY. WILL CONT TO MONITOR
[2024-09-28] MEDS ORDERED: Losartan Potassium 25 MG Tab PO SCH (09:00)
[2024-09-28] MEDS ORDERED: Insulin Glargine-Yfgn 100 Unit/mL 3 ML SYR SC SCH (09:00)
--- NOTE | 2024-09-28 12:57 | NUR ---
RETURNED WATCH, BRACELET, HOME MEDS TO PT SISTER. PT AGREES
--- NOTE | 2024-09-28 19:35 | NUR ---
PT PLEASANT COOP TODAY. LOTS OF EDUCATION ON CBG'S AND INSULIN. STATES JUST CHECKS CBG ONCE DAILY. JSUT ROLLS OUT INSULIN PEN 3 TIMES, MAYBE 40 UNITS AND GIVES ONCE DAILY. STATES CANNOT SEE PEN OR HOW MUCH GIVEN. DISCUSSED WITH CARE MANAGEMENT. FAMILY STATES HE LIES REGULARLY AND FOR NO REASON. SO NO ABILITY TO KNOW IF WHAT HE SAID IS TRUE OR NOT. BED IN LOW POSITION, CALL LITE IN REACH, CALLS APPROP
[2024-09-29 03:18] VITALS: BP 164/76
--- NOTE | 2024-09-29 04:44 | NUR ---
PT CALM, COOPERATIVE, AND PLEASANT THROUGHOUT SHIFT. INSULIN ADMINISTERED PER MD ORDER, NO ADVERSE EFFECTS NOTED. VSS, RRR AND UNLABORED.
[2024-09-29 08:11] VITALS: BP 193/113
[2024-09-29 15:48] VITALS: BP 155/77
--- NOTE | 2024-09-29 16:24 | NUR ---
SHIFT SUMMARY 1130 ASSUMED CARE OF PT WHO WAS RESTING QUIETLY IN BED WATCHING TV. DR CONDE IN TO SEE PT AND DISCUSS PLAN OF CARE. PT TO WORK WITH PT/OT AND THEN D/C TO SNF WHEN CBG'S REGULATED. INSULIN ADJUSTED BY DR CONDE AGAIN TODAY; SEE CHART. PT TO GET UP TO CHAIR FOR MEALS. PT C/O BEING WEAK, BUT LACKS MOTIVATION TO GET UP AND MOVE. PT RECEIVING IVF'S PER EMAR. EATS AND DRINKS WELL. REQUESTS DOOR TO BE CLOSED FOR QUIET. NO FURTHER NEEDS AT THIS TIME. CALL LT IN REACH.
[2024-09-29] MEDS ORDERED: Insulin Glargine-Yfgn 100 Unit/mL 3 ML SYR SC SCH (21:00)
[2024-09-29 21:16] VITALS: BP 144/79
[2024-09-30 00:20] VITALS: BP 159/90
--- NOTE | 2024-09-30 00:35 | NUR ---
TELE BATTERIES REPLACED, NEW BAG OF SALINE STARTED.
[2024-09-30 05:22] VITALS: BP 176/92
--- NOTE | 2024-09-30 07:34 | NUR ---
SHIFT SUMMARY AT START OF SHIFT, PT HAVING DIFFICULTIES WITH HIS IV OCCLUDING. THIS RN APPLIED AN ARM BOARD, AND PT STATES NO LONGER HAVING DIFFICULTIES. PT READJUSTED IN BED AND RESTING COMFORTABLY. PT DENIES PAIN AT THIS TIME. PT ABLE TO SLEEP WELL AFTER EVENING MEDICATION ADMINISTRATION. UPON HOURLY ROUNDING, PT SLEEPING SOUNDLY. CALL LIGHT IN REACH. PT AWAKE, LYING IN BED. REPORT GIVEN TO DAY SHIFT RN.
[2024-09-30 08:17] VITALS: BP 177/95
[2024-09-30 16:36] VITALS: BP 126/74
--- NOTE | 2024-09-30 17:30 | NUR ---
SHIFT SUMMARY PATIENT ALERT AND INTERACTIVE. PATIENT REPORTS THAT HE HAS BEEN HAVING ISSUES WITH VISUAL ISSUES AT HOME. PATIENT REPORTS HE IS NOT ABLE TO READ THE INSULIN PEN AND GUESSES AT HIS DOSE. PATIENT REPORTS THAT HE NORMALLY GETS AROUND INDEPENDENTLY UNTIL LATELY. PATIENT STATES HE WAS DRIVING UP UNTIL THIS ADMISSION. TALKED ABOUT POSSIBLE NEED TO TRANSITION TO ASSISTED LIVING AFTER REHAB IF DOES NOT IMPROVE. PATIENT ONLY UP TO CHAIR 1X TODAY. PATIENT NOT WANTING TO GET OUT OF BED BECAUSE OF JOINT SORENESS AND PAIN.
[2024-09-30 20:21] VITALS: BP 155/87
[2024-09-30] MEDS ORDERED: DiphenhydrAMINE HCl 50 MG Cap PO ONE (20:35)
[2024-10-01 04:18] VITALS: BP 165/101
[2024-10-01 05:10] VITALS: BP 172/85
--- NOTE | 2024-10-01 05:59 | NUR ---
SHIFT SUMMARY PT A&Ox4 AND PLEASANT. BG 167 AND HS. NS INFUSING @ 125ml/hr. MALE PURWICK IN PLACE AND DRAINING PALE YELLOW URINE. PT C/O SEVERE ITCHING ON BACK. HOSPITALIST CALLED AND ORDER GIVEN FOR 1 TIME DOSE OF BENYDRAL. PT's BACK ALSO WASHED AND POWDER APPLIED. NEW PILLOW CASES PLACED ON PILLOW. PT HAS RAISED, RED, SPLOTCHY RASH ON BACK. PT REPORTED SOME RELIEF WITH BENYDRAL. PT REPOSITIONED PRN AND FLOATED ON PILLOWS. BP ELEVATED WITH MORNING VITALS. HYDRALAZINE GIVEN PER PARMETERS. LEFT HAND AND FORARM SWOLLEN, ELEVATED ON PILLOWS. BED IN LOWEST POSITION AND CALL LIGHT IN REACH.
[2024-10-01 07:54] VITALS: BP 158/79
[2024-10-01 12:14] VITALS: BP 182/89
--- NOTE | 2024-10-01 14:42 | NUR ---
SHIFT SUMMARY AND DISCHARGE PATIENT ALERT AND INTERACTIVE. PATIENT UP TO CHAIR FOR BREAKFAST. PATIENT TO TRANSFER TO [facility] FOR REHAB. CONTINUE TO PROVIDE EDUCATION ON IMPORTANCE TO CONTROL BLOOD SUGAR. DISCUSSED THE IMPORTANCE OF DIET AND EXERCISE ALONG WITH APPROPRIATLY MANANGING BLOOD SUGAR WITH ACCURATE DOSING OF INSULIN. ATTEMPTED TO CALL [facility] FOR REPORT UNABLE TO GIVE REPORT.
[2024-10-01] MEDS ORDERED: BASAGLAR K100 UNIT/6 SC (15:05)
[2024-10-01] MEDS ORDERED: HUMALOG KW100 UNIT/1 SC (15:08)
[2024-10-01] MEDS ORDERED: LOSA50 PO (15:08)
--- NOTE | 2024-10-01 15:25 | NUR ---
TRACY CALLED BACK FOR REPORT. REPORT GIVEN TO EDGAR
== END 2024-10-01 14:11 | DRG 637 ==
LOC: ER 08:25 → MEDS 10:18 → ERHOLD 10:18 → ICUE 12:23 → MEDS 09-24 17:58
PROVIDERS: Emergency Medicine; Internal Medicine; Nurse Practitioner Acute Care; ADMIT Internal Medicine
DX: E11.00 Type 2 diabetes mellitus with hyperosmolarity without nonketotic hyperglycemic-hyperosmolar coma (NKHHC) (principal); G92.8 Other toxic encephalopathy; E87.1 Hypo-osmolality and hyponatremia; R62.7 Adult failure to thrive; Z66 Do not resuscitate; E86.0 Dehydration; I10 Essential (primary) hypertension; M16.12 Unilateral primary osteoarthritis, left hip; Z79.85 Long-term (current) use of injectable non-insulin antidiabetic drugs; Z79.4 Long term (current) use of insulin; Z79.52 Long term (current) use of systemic steroids; Z79.899 Other long term (current) drug therapy; Z79.51 Long term (current) use of inhaled steroids; Z79.82 Long term (current) use of aspirin; Z85.46 Personal history of malignant neoplasm of prostate; Z87.891 Personal history of nicotine dependence; Z68.25 Body mass index [BMI] 25.0-25.9, adult
CPT/HCPCS: 36415; 70450; 71045; 73502; 80048; 80053; 81001; 82010; 82140; 82803; 82947; 83036; 83735; 83880; 84439; 84443; 85025; 93005; 93010; 94762; 96374; 97110; 97116; 97162; 97530; 99285-25; A9270; J0360; J1650; J1815; J2060; J2405; J2765; J3480; J7030; J7040; J7042; J7050; J7120